=== PATIENT | male | born 1965 | race Caucasian/White ===

== ENCOUNTER 2016-06-02 20:29 | Emergency (ER) | payer MEDICAID ==
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
[2016-06-03] MEDS ORDERED: HYDROCODONE/ACETAMINOPHEN 5-325 MG 6 TAB/DSPK PO PRN (03:40)
[2016-06-03] MEDS ORDERED: HYDROCODONE/ACETAMINOPHEN 5-325 MG TABLET PO ONE (03:40)
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
[2016-06-03 03:48] VITALS: BP 138/87
== END 2016-06-03 03:49 | disposition home or self-care (01) ==
LOC: ER 20:29
DX: S16.1XXA Strain of muscle, fascia and tendon at neck level, initial encounter (principal); Y04.8XXA Assault by other bodily force, initial encounter; M54.2 Cervicalgia; M25.531 Pain in right wrist; I10 Essential (primary) hypertension; E11.9 Type 2 diabetes mellitus without complications; J44.9 Chronic obstructive pulmonary disease, unspecified; J45.909 Unspecified asthma, uncomplicated; F17.200 Nicotine dependence, unspecified, uncomplicated; Z88.6 Allergy status to analgesic agent; Z88.8 Allergy status to other drugs, medicaments and biological substances
CPT/HCPCS: 72050; 72125; 99284

== ENCOUNTER 2017-09-06 00:10 | Emergency (ER) | payer MEDICAID ==
[2017-09-06] MEDS ORDERED: DIPH/PERTUSS(ACELL)/TETANUS VAC/PF 0.5 ML SYR (>=10YO) IM ONE ×2 (00:31→05:11)
[2017-09-06] MEDS ORDERED: ONDANSETRON HCL INJ/PF 4 MG/2 ML SDV IV ONE (00:32)
[2017-09-06] MEDS ORDERED: NORMAL SALINE 1000 ML 1,000 ML IV ONE (00:32)
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
--- NOTE | 2017-09-06 01:22 | RADIOLOGY REPORT (SQ) ---
EXAM DESCRIPTION: CT of the cervical spine without contrast. CLINICAL HISTORY: fall, pain COMPARISON: None available TECHNIQUE: Axial CT of the cervical spine obtained without contrast. FINDINGS: Alignment of the cervical spine is maintained without evidence of subluxation. The atlantoaxial, atlantodental, and occipitoatlantal intervals are preserved. No fracture identified. Vertebral body height preserved. Prevertebral soft tissues are unremarkable. Degenerative spurring of the atlantodental articulation. Mild endplate spondylosis, uncovertebral spurring, and facet arthropathy without significant central canal nor neural foraminal narrowing. Intervertebral disc height relatively well-preserved throughout the cervical spine. Visualized skull base is intact. No fracture of the visualized facial bones. Visualized mastoid air cells and paranasal sinuses are well aerated. Visualized thyroid is unremarkable. No cervical lymphadenopathy. No pneumothorax in the visualized lung apices. DLP: 284.26 mGy-cm IMPRESSION: 1. No acute fracture or subluxation of the cervical spine. This exam was performed according to our departmental dose-optimization program, which includes automated exposure control, adjustment of the mA and/or kV according to patient size and/or use of iterative reconstruction technique.
[2017-09-06 01:42] LABS: ANION GAP 19 (5-19); BLOOD UREA NITROGEN 29 mg/dL (7-20); CALCIUM 9.1 mg/dL (8.4-10.2); CARBON DIOXIDE 21 mmol/L (22-30); CHLORIDE 92 mmol/L (98-107); GLUCOSE 190 mg/dL (75-110); POTASSIUM 3.5 mmol/L (3.6-5.0); SODIUM 131.5 mmol/L (137-145)
--- NOTE | 2017-09-06 01:49 | RADIOLOGY REPORT (SQ) ---
EXAM DESCRIPTION: 2 views of the left elbow CLINICAL HISTORY: fall, pain COMPARISON: None. FINDINGS: IV in the antecubital fossa. No joint effusion. No acute fracture or dislocation. Normal osseous mineralization. IMPRESSION: No acute fracture or dislocation.
--- NOTE | 2017-09-06 01:50 | RADIOLOGY REPORT (SQ) ---
EXAM DESCRIPTION: Lumbar spine radiographs CLINICAL HISTORY: fall, pain COMPARISON: None. FINDINGS: 5 views of the lumbar spine. 5 nonrib-bearing lumbar vertebrae. Pedicles identified throughout. Lumbar vertebral body height preserved. No cortical step-offs or subluxation. Mild endplate spondylosis. Mild loss of intervertebral disc height at L2/3. No abnormalities of visualized sacrum. Atherosclerotic vascular calcification. IMPRESSION: No acute abnormalities of the lumbar spine by plain film criteria.
--- NOTE | 2017-09-06 01:53 | RADIOLOGY REPORT (SQ) ---
EXAM DESCRIPTION: 2 views of the left shoulder CLINICAL HISTORY: fall, pain COMPARISON: None. FINDINGS: 2 views of the left shoulder. No acute fracture or dislocation. Normal osseous mineralization. Degenerative change of the acromioclavicular joint. Visualized portions of the left hemithorax demonstrate no acute abnormalities. IMPRESSION: No acute fracture or dislocation.
[2017-09-06] MEDS ORDERED: NORMAL SALINE 1000 ML 500 ML IV ONE (02:01)
[2017-09-06] MEDS ORDERED: POTASSIUM CHLORIDE 10 MEQ TABLET.SA PO ONE (02:01)
[2017-09-06] MEDS ORDERED: FAMOTIDINE 20 MG TABLET PO ONE ×2 (02:01→05:11)
[2017-09-06 04:13] LABS: ANION GAP 15 (5-19); BLOOD UREA NITROGEN 27 mg/dL (7-20); CARBON DIOXIDE 24 mmol/L (22-30); CHLORIDE 93 mmol/L (98-107); GLUCOSE 184 mg/dL (75-110); POTASSIUM 3.6 mmol/L (3.6-5.0); SODIUM 132.2 mmol/L (137-145)
[2017-09-06 06:08] VITALS: BP 128/64
== END 2017-09-06 06:15 | disposition home or self-care (01) ==
LOC: ER 00:10
DX: F10.929 Alcohol use, unspecified with intoxication, unspecified (principal); F17.200 Nicotine dependence, unspecified, uncomplicated; M25.512 Pain in left shoulder; R51 Headache; M79.602 Pain in left arm; E11.9 Type 2 diabetes mellitus without complications; I10 Essential (primary) hypertension; Z23 Encounter for immunization
CPT/HCPCS: 99285; 96361; 90471; 96374; 36415; 83735; 80048; 73070; 72110; 73030; 70450; 72125; 90715; J3490; J2405; J7030

== ENCOUNTER 2018-04-07 22:41 | Emergency (ER) | payer MEDICAID, OTHER ==
[2018-04-07] MEDS ORDERED: ONDANSETRON HCL INJ/PF 4 MG/2 ML SDV IV ONE (23:00)
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
[2018-04-07 23:31] LABS: ABSOLUTE EOSINOPHILS # (AUTO) 0.2 10^3/uL (0.0-0.6); ABSOLUTE MONOCYTES (AUTO) 0.5 10^3/uL (0.1-1.4); ABSOLUTE NEUT (AUTO) 5.3 10^3/uL (1.7-8.2); BASOPHILS % (AUTO) 0.4 % (0-2); HEMATOCRIT 40.6 % (37.9-51.0); HEMOGLOBIN 14.1 g/dL (13.5-17.0); MEAN CORPUSCULAR HEMOGLOBIN 32.2 pg (27.0-33.4); MEAN CORPUSCULAR HGB CONC 34.7 g/dL (32.0-36.0); MEAN CORPUSCULAR VOLUME 93 fl (80-97); MONOCYTES % (AUTO) 6.1 % (3-13); PLATELET COUNT 203 10^3/uL (150-450); RED BLOOD COUNT 4.38 10^6/uL (4.35-5.55); RED CELL DISTRIBUTION WIDTH 14.1 % (11.5-14.0); SEGMENTED NEUTROPHILS % (AUTO) 65.5 % (42-78); TOTAL CELLS COUNTED % (AUTO) 100 %
--- NOTE | 2018-04-07 23:37 | RADIOLOGY REPORT (SQ) ---
EXAM DESCRIPTION: XR TIBIA FIBULA 2 VIEWS COMPLETED DATE/TME: 04/07/2018 23:01 CLINICAL HISTORY: 52 years, Male, fall, pain COMPARISON: None. NUMBER OF VIEWS: 4 TECHNIQUE: 4 view right tibia fibula LIMITATIONS: None. FINDINGS: Negative for acute fracture or dislocation. Soft tissues are unremarkable. Joint spaces are preserved IMPRESSION: Negative exam copyright 2010 [employer]- All Rights Reserved
[2018-04-07 23:40] LABS: ANION GAP 10 (5-19); BLOOD UREA NITROGEN 12 mg/dL (7-20); CALCIUM 9.2 mg/dL (8.4-10.2); CARBON DIOXIDE 26 mmol/L (22-30); CHLORIDE 106 mmol/L (98-107); GLUCOSE 121 mg/dL (75-110); POTASSIUM 4.1 mmol/L (3.6-5.0); SODIUM 141.8 mmol/L (137-145)
--- NOTE | 2018-04-07 23:59 | RADIOLOGY REPORT (SQ) ---
EXAM DESCRIPTION: CT HEAD WITHOUT IV CONTRAST COMPLETED DATE/TME: 04/07/2018 22:59 CLINICAL HISTORY: fall, head injury, ETOH COMPARISON: None available TECHNIQUE: Axial CT of the head obtained from the skull apex to the skull base without contrast. FINDINGS: No acute intracranial hemorrhage identified. No mass, mass effect, shift of the midline, abnormal extra-axial fluid collection or CT evidence of acute ischemic change identified. The ventricular system is unremarkable. No acute abnormalities of the supratentorial white matter, basal ganglia, cerebellum, or brainstem. The visualized paranasal sinuses and the mastoids are clear. Nondisplaced nasal bone fracture. No skull fracture identified. Visualized orbits and globes are unremarkable. DLP:930.56 mGy-cm IMPRESSION: 1. No acute intracranial abnormality identified. 2. Nondisplaced nasal bone fracture. This exam was performed according to our departmental dose-optimization program, which includes automated exposure control, adjustment of the mA and/or kV according to patient size and/or use of iterative reconstruction technique.
--- NOTE | 2018-04-07 23:59 | RADIOLOGY REPORT (SQ) ---
EXAM DESCRIPTION: CT CERVICAL SPINE WITHOUT IV CONTRAST COMPLETED DATE/TME: 04/07/2018 22:59 CLINICAL HISTORY: 52 years, Male, fall, pain COMPARISON: Prior CT 06/03/2016 TECHNIQUE: 257 Images stored on PACS. All CT scanners at this facility use dose modulation, iterative reconstruction, and/or weight based dosing when appropriate to reduce radiation dose to as low as reasonably achievable (ALARA). [facility]: Dose Right [facility]: CareDose [facility]: Dose Right [facility]: Teradose 4D [facility]: [employer] LIMITATIONS: None. FINDINGS: Evaluation of spinal canal contents limited due to CT technique. However, vertebral body height and alignment is preserved. Chronic changes to the atlantoaxial space. The disc spaces are otherwise maintained. Prevertebral soft tissues are normal. Limited evaluation of the lung apices is unremarkable. IMPRESSION: No acute C-spine abnormality TECHNICAL DOCUMENTATION: Quality ID # 436: Final reports with documentation of one or more dose reduction techniques (e.g., Automated exposure control, adjustment of the mA and/or kV according to patient size, use of iterative reconstruction technique) copyright 2011 [employer]- All Rights Reserved
--- NOTE | 2018-04-08 00:08 | RADIOLOGY REPORT (SQ) ---
EXAM DESCRIPTION: CT CHEST, abdomen and pelvis WITH IV CONTRAST COMPLETED DATE/TME: 04/07/2018 22:59 CLINICAL HISTORY: 52 years, Male, fall, pain COMPARISON: None. TECHNIQUE: 518 Images stored on PACS. All CT scanners at this facility use dose modulation, iterative reconstruction, and/or weight based dosing when appropriate to reduce radiation dose to as low as reasonably achievable (ALARA). [facility]: Dose Right [facility]: CareDose [facility]: Dose Right [facility]: Teradose 4D [facility]: [employer] LIMITATIONS: None. FINDINGS: CT chest: Revised thyroid gland enhances normally. The mediastinal vasculature enhances normally. Nonenlarged mediastinal and hilar lymph nodes. The heart and pericardium are unremarkable. Osseous structures of the thorax are grossly intact. No pneumothorax. The visualized airways are patent. The lungs are clear. CT abdomen/pelvis: Osseous structures of the abdomen/pelvis are grossly intact. Fatty infiltrative change to the liver. Nodular contour to the liver consistent with early cirrhotic change. The spleen, adrenal glands, pancreas, kidneys are unremarkable. The gallbladder is present. No gross evidence for bowel obstruction. No free air or free fluid. Urinary bladder is mildly distended. Mild atheromatous change. Not stated previously, there is a simple appearing right renal cyst. IMPRESSION: Negative for acute intrathoracic process. Negative for acute intra-abdominal/pelvic process. Nodular, cirrhotic changes to the liver with underlying fatty infiltrative change. TECHNICAL DOCUMENTATION: Quality ID # 436: Final reports with documentation of one or more dose reduction techniques (e.g., Automated exposure control, adjustment of the mA and/or kV according to patient size, use of iterative reconstruction technique) copyright 2011 [employer]- All Rights Reserved
[2018-04-08 00:28] LABS: APPEARANCE,URINE CLEAR; BILIRUBIN,URINE NEGATIVE (NEGATIVE); COLOR,URINE COLORLESS; GLUCOSE, URINE NEGATIVE (NEGATIVE); KETONES,URINE NEGATIVE (NEGATIVE); LEUKOCYTE ESTERASE,URINE NEGATIVE (NEGATIVE); NITRITE,URINE NEGATIVE (NEGATIVE); PROTEIN,URINE NEGATIVE (NEGATIVE); URINE SPECIFIC GRAVITY 1.003; UROBILINOGEN,URINE NEGATIVE mg/dL (<2.0)
[2018-04-08 02:05] VITALS: BP 111/68
== END 2018-04-08 01:20 | disposition home or self-care (01) ==
LOC: ER 22:41
DX: S02.2XXA Fracture of nasal bones, initial encounter for closed fracture (principal); S09.90XA Unspecified injury of head, initial encounter; M79.604 Pain in right leg; M54.2 Cervicalgia; W01.0XXA Fall on same level from slipping, tripping and stumbling without subsequent striking against object, initial encounter; Y92.008 Other place in unspecified non-institutional (private) residence as the place of occurrence of the external cause; I10 Essential (primary) hypertension; E11.9 Type 2 diabetes mellitus without complications; F10.929 Alcohol use, unspecified with intoxication, unspecified
CPT/HCPCS: 99284; 96374; 36415; 85025; 80048; 81001; 73590; 70450; 71260; 72125; 74177; J2405

== ENCOUNTER 2020-04-13 13:24 | Inpatient (IN) | payer MEDICAID ==
[2020-04-13] MEDS ORDERED: MORPHINE SULFATE 10 MG/ML INJ IV ONE ×2 (14:13→16:59)
[2020-04-13] MEDS ORDERED: ONDANSETRON HCL INJ/PF 4 MG/2 ML SDV IV ONE (14:13)
[2020-04-13] MEDS ORDERED: NORMAL SALINE 1000 ML 1,000 ML IV ONE (14:15)
--- NOTE | 2020-04-13 14:16 | ER Document Report ---
ED Medical Screen (RME) - General Stated Complaint: NECK PAIN/SHORTNESS OF BREATH/NAUSEA/VOMITING Time Seen by Provider: 04/13/20 14:08 Primary Care Provider: ELY RODRIGUEZ PA-C [Primary Care Provider] - Follow up as needed Notes: Patient presents complaining of neck pain and low back pain for the past 3 days. Patient states pain radiates to bilateral upper extremities. Patient states that his legs go out and he has fallen twice over the past few days. Patient reports nausea and vomiting x5 episodes today. Patient denies any fever. Patient reports a history of asthma, hypertension and diabetes. Patient came by EMS and removed his cervical collar that had been placed. Patient refuses cervical collar. I have greeted and performed a rapid initial assessment of this patient. A comprehensive ED assessment and evaluation of the patient, analysis of test results and completion of the medical decision making process will be conducted by additional ED providers. TRAVEL OUTSIDE OF THE [place] IN LAST 30 DAYS: No - Related Data Allergies/Adverse Reactions: gabapentin [Gabapentin] Allergy (Severe, Verified 04/13/20 14:09) n and v prednisone Allergy (Verified 04/13/20 14:09) Past Medical History - Past Medical History Cardiac Medical History: Reports: Hx Hypertension - on meds Denies: Hx Coronary Artery Disease, Hx Heart Attack Pulmonary Medical History: Reports: Hx Asthma - nebulizer, Hx Bronchitis - hx of, Hx COPD - inhalers Denies: Hx Pneumonia Neurological Medical History: Denies: Hx Cerebrovascular Accident, Hx Seizures Endocrine Medical History: Reports: Hx Diabetes Mellitus Type 2 Renal/ Medical History: Denies: Hx Peritoneal Dialysis Musculoskeltal Medical History: Reports Hx Arthritis - mild, Reports Hx Musculoskeletal Deformity Past Surgical History: Reports: Hx Appendectomy, Hx Orthopedic Surgery - Kolb's cyst removal, carpal, and another nerve release to right arm - Immunizations Hx Diphtheria, Pertussis, Tetanus Vaccination: No Physical Exam - Vital signs Vitals: Temp Pulse Resp BP Pulse Ox 97.9 F 84 20 91/60 L 95 04/13/20 14:03 04/13/20 14:03 04/13/20 14:03 04/13/20 14:03 04/13/20 14:03 - General General appearance: Alert Notes: Cervical paraspinal tenderness, patient holding head flexed for comfort, lower lumbar midline tenderness Course - Vital Signs Vital signs: Temp Pulse Resp BP Pulse Ox 97.9 F 84 20 91/60 L 95 04/13/20 14:03 04/13/20 14:03 04/13/20 14:03 04/13/20 14:03 04/13/20 14:03 Doctor's Discharge - Discharge Referrals: ELY RODRIGUEZ, REECEC [Primary Care Provider] - Follow up as needed
--- NOTE | 2020-04-13 14:50 | RADIOLOGY REPORT (SQ) ---
EXAM DESCRIPTION: L SPINE WHOLE IMAGES COMPLETED DATE/TIME: 04/13/2020 2:35 pm REASON FOR STUDY: back pain, hx fall COMPARISON: 09/06/2017 NUMBER OF VIEWS: Five views including obliques. TECHNIQUE: AP, lateral, oblique, and sacral radiographic images acquired of the lumbar spine. LIMITATIONS: None. FINDINGS: MINERALIZATION: Normal. SEGMENTATION: Normal. No transitional anatomy. ALIGNMENT: Normal. VERTEBRAE: Maintained height. No fracture or worrisome bone lesion. DISCS: Multilevel disc space narrowing with osteophytes. POSTERIOR ELEMENTS: Pedicles and facets are intact. No pars defect or posterior arch defects. Facet arthropathy is present. HARDWARE: None in the spine. PARASPINAL SOFT TISSUES: Atherosclerotic calcifications. PELVIS: Intact as visualized. No fractures or worrisome bone lesions. SI joints intact. OTHER: No other significant finding. IMPRESSION: SPONDYLOSIS WITHOUT BONE LESION OR FRACTURE. Similar appearance to 2018. TECHNICAL DOCUMENTATION: JOB ID: [id number] [place]-72 2010 [employer]- All Rights Reserved Reading location - IP/workstation name: [email or web address]
[2020-04-13 15:12] LABS: ABSOLUTE EOSINOPHILS # (AUTO) 0.1 10^3/uL (0.0-0.6); ABSOLUTE MONOCYTES (AUTO) 0.8 10^3/uL (0.1-1.4); ABSOLUTE NEUT (AUTO) 8.2 10^3/uL (1.7-8.2); BASOPHILS % (AUTO) 0.1 % (0-2); EOSINOPHILS % (AUTO) 1.4 % (0-6); HEMATOCRIT 35.4 % (37.9-51.0); HEMOGLOBIN 11.7 g/dL (13.5-17.0); LYMPHOCYTES % (AUTO) 9.5 % (13-45); MEAN CORPUSCULAR HGB CONC 33.2 g/dL (32.0-36.0); MEAN CORPUSCULAR VOLUME 96 fl (80-97); MONOCYTES % (AUTO) 7.8 % (3-13); PLATELET COUNT 181 10^3/uL (150-450); RED BLOOD COUNT 3.67 10^6/uL (4.35-5.55); RED CELL DISTRIBUTION WIDTH 14.6 % (11.5-14.0); SEGMENTED NEUTROPHILS % (AUTO) 81.2 % (42-78); TOTAL CELLS COUNTED % (AUTO) 100 %; WHITE BLOOD COUNT 10.1 10^3/uL (4.0-10.5)
--- NOTE | 2020-04-13 15:20 | RADIOLOGY REPORT (SQ) ---
EXAM DESCRIPTION: CT CERVICAL SPINE WITHOUT IMAGES COMPLETED DATE/TIME: 04/13/2020 11:47 am REASON FOR STUDY: neck pain, hx fall COMPARISON: 04/03/2020 TECHNIQUE: Axial images acquired through the cervical spine without intravenous contrast. Images re viewed with lung, soft tissue and bone windows. Reconstructed coronal and sagittal MPR images review ed. Images stored on PACS. All CT scanners at this facility use dose modulation, iterative reconstruction, and/or weight based d osing when appropriate to reduce radiation dose to as low as reasonably achievable (ALARA). [facility]: Dose Right [facility]: CareDose [facility]: Dose Right [facility]: Teradose 4D [facility]: [employer] RADIATION DOSE: CT Rad equipment meets quality standard of care and radiation dose reduction techniq ues were employed. CTDIvol: 24.4 mGy. DLP: 722 mGy-cm. mGy. LIMITATIONS: None. FINDINGS: ALIGNMENT: Straightening of the normal cervical lordosis is similar to prior examination. No spondylolisthesis. MINERALIZATION: Normal. VERTEBRAL BODIES: No fractures or dislocation. DISCS: Disc height is relatively well preserved. FACETS, LATERAL MASSES, POSTERIOR ELEMENTS: No fractures. No dislocation. No acute findings. Facet arthropathy on the right at C2-3. HARDWARE: None in the spine. VISUALIZED RIBS: No fractures. LUNG APICES AND SOFT TISSUES: Minimal apical scarring and probable minimal centrilobular emphysema. OTHER: No other significant finding. IMPRESSION: 1. No CT evidence of acute fracture or subluxation of the cervical spine. TECHNICAL DOCUMENTATION: JOB ID: [id number] Quality ID # 436: Final reports with documentation of one or more dose reduction techniques (e.g., Au tomated exposure control, adjustment of the mA and/or kV according to patient size, use of iterative reconstruction technique) 2010 [employer]- All Rights Reserved Reading location - IP/workstation name: [email or web address]
[2020-04-13 15:25] LABS: ALBUMIN 4.6 g/dL (3.5-5.0); ALKALINE PHOSPHATASE 45 U/L (38-126); ANION GAP 14 (5-19); ASPARTATE AMINO TRANSFERASE 43 U/L (17-59); BILIRUBIN,DIRECT 0.3 mg/dL (0.0-0.4); BILIRUBIN,TOTAL 0.8 mg/dL (0.2-1.3); BLOOD UREA NITROGEN 52 mg/dL (7-20); CALCIUM 8.8 mg/dL (8.4-10.2); CARBON DIOXIDE 24 mmol/L (22-30); CHLORIDE 101 mmol/L (98-107); CREATINE KINASE 1325 U/L (55-170); GLUCOSE 211 mg/dL (75-110); POTASSIUM 4.8 mmol/L (3.6-5.0)
[2020-04-13] MEDS ORDERED: ONDANSETRON HCL INJ/PF 4 MG/2 ML SDV ONE (17:05)
[2020-04-13 17:50] LABS: APPEARANCE,URINE SLIGHTLY-CLOUDY; BILIRUBIN,URINE NEGATIVE (NEGATIVE); COLOR,URINE YELLOW; GLUCOSE, URINE NEGATIVE (NEGATIVE); KETONES,URINE NEGATIVE (NEGATIVE); LEUKOCYTE ESTERASE,URINE NEGATIVE (NEGATIVE); NITRITE,URINE NEGATIVE (NEGATIVE); PROTEIN,URINE 30 mg/dL (NEGATIVE); URINE SPECIFIC GRAVITY 1.021; UROBILINOGEN,URINE NEGATIVE mg/dL (<2.0)
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
[2020-04-13] MEDS ORDERED: ACETAMINOPHEN 325 MG TABLET PO PRN (20:43)
[2020-04-13] MEDS ORDERED: NORMAL SALINE 1000 ML 1,000 ML IV PRN (20:43)
[2020-04-13] MEDS ORDERED: ONDANSETRON HCL INJ/PF 4 MG/2 ML SDV IV PRN (20:43)
[2020-04-13] MEDS ORDERED: IPRATROPIUM/ALBUTEROL 0.5-2.5 MG/3 ML AMPUL NEB ONE (20:43)
[2020-04-13] MEDS ORDERED: DEXTROSE 40% GEL 15 GM TUBE PO PRN ×2 (20:56)
[2020-04-13] MEDS ORDERED: GLUCAGON,HUMAN RECOMB 1 MG INJ IM PRN (20:56)
[2020-04-13] MEDS ORDERED: DEXTROSE 50%-WATER 25 GM/50 ML DISP.SYRIN IV PRN ×2 (20:56)
--- NOTE | 2020-04-13 21:31 | PDOC H&P ---
History of Present Illness Admission Date/PCP: ELY RODRIGUEZ PA-C Patient complains of: Neck and back pain, generalized weakness History of Present Illness: TORY GARCIA is a 55 year old male with a history of type 2 diabetes, hypertension, COPD and chronic back pain who presents to the ED reporting worsening of neck and back pain. On further questioning patient reports that he has body aches all over with associated generalized weakness. He reports that he he fell down 3 times in the past few days due to generalized weakness and pain but he denies any dizziness, lightheadedness, passing out/losing consciousness or hitting his head. He states that he had multiple episodes of nonbloody and nonbilious vomiting of ingested matter 3 days back which subsided spontaneously but he states that he still feels nauseous. He states that he has been taking oxycodone and Tylenol for his back and neck pain but denies taking any other nonsteroidal anti-inflammatory drugs. He reported that he has chronic cough from COPD but has not noticed any significant change in the intensity of his cough or shortness of breath. He denies fever, chills, diarrhea, abdominal pain, dysuria, frequency or urgency. On routine labs his BUN and/creatinine was found to be markedly elevated at 52/5.5 from a creatinine of 1.47 10 days back. Past Medical History Cardiac Medical History: Reports: Hypertension - on meds Denies: Coronary Artery Disease, Myocardial Infarction Pulmonary Medical History: Reports: Asthma - nebulizer, Bronchitis - hx of, Chronic Obstructive Pulmonary Disease (COPD) - inhalers Denies: Pneumonia Neurological Medical History: Denies: Seizures Endocrine Medical History: Reports: Diabetes Mellitus Type 2 Musculoskeltal Medical History: Reports: Arthritis - mild Hematology: Denies: Anemia Past Surgical History Past Surgical History: Reports: Appendectomy, Orthopedic Surgery - Kolb's cyst removal, carpal, and another nerve release to right arm Social History Information Source: Patient Smoking Status: Current Every Day Smoker Electronic Cigarette use?: No Hx Recreational Drug Use: No Drugs: None - Advance Directive Resuscitation Status: Full Code Family History Family History: None, Reviewed & Not Pertinent Parental Family History Reviewed: Yes Children Family History Reviewed: Yes Sibling(s) Family History Reviewed.: Yes Medication/Allergy Home Medications: Albuterol Sulfate [Albuterol Sulfate Hfa] 2 puff IH Q4H PRN 04/15/13 Albuterol Sulfate [Proair HFA Inhalation Aerosol 8.5 gm MDI] 1 puff IH Q4 PRN 06/06/15 Hydrochlorothiazide 25 mg PO DAILY 06/06/15 Lisinopril [Prinivil] 20 mg PO DAILY 06/06/15 Metformin HCl 500 mg PO BID 06/06/15 Promethazine HCl [Phenergan 25 mg Supp.rect] 25 mg ID Q4HP PRN 06/06/15 Tiotropium [place] [Spiriva Handihaler 18 mcg/dose (30 Dose)] 1 cap IH DAILY 06/06/15 Hydromorphone HCl [Dilaudid 2 mg Tablet] 2 mg PO Q4HP PRN #40 tablet 06/13/15 Aspirin [Ecotrin] 81 mg PO DAILY 08/01/15 Oxycodone HCl/Acetaminophen [Percocet 5-325 mg Tablet] 1 - 2 tab PO ASDIR PRN #50 tablet 08/05/15 Oxycodone HCl/Acetaminophen [Percocet 5-325 mg Tablet] 1 tab PO Q6HP PRN #10 tablet 08/10/15 Hydrocodone Bit/Acetaminophen [Hydrocodon-Acetaminophen 5-325] 1 each PO Q4HP PRN #20 tablet 10/26/15 Prednisone [Deltasone 10 mg Tablet] 10 mg PO ASDIR PRN #21 tablet 10/26/15 Promethazine HCl [Phenergan 25 mg Tablet] 25 mg PO Q4HP PRN #30 tablet 10/26/15 Hydrocodone/Acetaminophen [[place] 5-325 mg Tablet] 1 tab PO Q4 PRN #8 tablet 06/03/16 Famotidine [Pepcid 20 mg Tablet] 20 mg PO BID #20 tablet 09/06/17 Ondansetron [Zofran Odt 4 mg Tablet] 1 - 2 tab PO Q4H PRN #15 tab.rapdis 09/06/17 Cephalexin Monohydrate [Keflex 500 mg Capsule] 500 mg PO BID 5 Days #14 capsule 04/04/20 Propranolol HCl [Inderal 20 mg Tablet] 20 mg PO HSP PRN #20 tab 04/04/20 Allergies/Adverse Reactions: gabapentin [Gabapentin] Allergy (Severe, Verified 04/13/20 14:09) n and v prednisone Allergy (Verified 04/13/20 14:09) Review of Systems Constitutional: ABSENT: chills, fever(s), headache(s), weight gain, weight loss Eyes: ABSENT: visual disturbances Ears: ABSENT: hearing changes Nose, Mouth, and Throat: ABSENT: headache(s), mouth pain, sore throat Cardiovascular: ABSENT: chest pain, dyspnea on exertion, orthropnea, palpitations Respiratory: PRESENT: as per HPI. ABSENT: hemoptysis Gastrointestinal: PRESENT: as per HPI Genitourinary: ABSENT: dysuria, hematuria Musculoskeletal: ABSENT: joint swelling Integumentary: ABSENT: rash, wounds Neurological: ABSENT: abnormal gait, abnormal speech, confusion, dizziness, focal weakness, syncope Psychiatric: ABSENT: anxiety, depression, homidical ideation, suicidal ideation Endocrine: ABSENT: cold intolerance, heat intolerance, polydipsia, polyuria Hematologic/Lymphatic: ABSENT: easy bleeding, easy bruising Physical Exam Vital Signs: Temp Pulse Resp BP Pulse Ox 97.9 F 84 20 117/58 L 95 04/13/20 14:08 04/13/20 14:03 04/13/20 14:03 04/13/20 14:17 04/13/20 14:03 Intake & Output 04/12/20 04/13/20 04/14/20 06:59 06:59 06:59 Intake Total 1000 Balance 1000 Weight 81.647 kg Additional comments: GENERAL APPEARANCE: Alert and oriented x3, in no acute distress HEENT: Normocephalic and atraumatic. No scleral icterus. Dry oral mucosa NECK: Supple. No lymphadenopathy or tenderness. No carotid bruit. No JVD CHEST: Symmetric. Nontender to palpation. LUNGS: Clear with good air entry bilaterally. Has diffuse wheezing bilaterally HEART: Regular rate and rhythm with normal S1 and S2. No murmurs, gallops, or rubs. ABDOMEN:active bowel sounds, no direct or rebound tenderness. No organomegaly detected. No CVA tenderness EXTREMITIES: No cyanosis, clubbing, or edema. MUSCULOSKELETAL: No deformity, atrophy or swelling noted PSYCHIATRIC: Recent and remote memory is intact. Appropriate mood and affect. SKIN: Warm, dry, and well perfused. No lesions or rashes are noted. NEUROLOGIC: No focal sensory or motor deficits are noted. Results Laboratory Results: 04/13/20 14:48 04/13/20 14:48 04/13/20 04/13/20 04/13/20 14:48 14:48 17:00 WBC 10.1 RBC 3.67 L Hgb 11.7 L Hct 35.4 L MCV 96 MCH 32.0 MCHC 33.2 RDW 14.6 H Plt Count 181 Seg Neutrophils % 81.2 H Sodium 139.1 Potassium 4.8 Chloride 101 Carbon Dioxide 24 Anion Gap 14 BUN 52 H Creatinine 5.50 H Est GFR ( Amer) 13 L Glucose 211 H Calcium 8.8 Total Bilirubin 0.8 AST 43 Alkaline Phosphatase 45 Total Protein 8.0 Albumin 4.6 Urine Color YELLOW Urine Appearance SLIGHTLY-CLOUDY Urine pH 5.0 Ur Specific [place] 1.021 Urine Protein 30 H Urine Glucose (UA) NEGATIVE Urine Ketones NEGATIVE Urine Blood MODERATE H Urine Nitrite NEGATIVE Ur Leukocyte Esterase NEGATIVE Urine WBC (Auto) 1 Urine RBC (Auto) 1 04/13/20 14:48 Creatine Kinase 1325 H Impressions: Cervical Spine CT 04/13/20 14:13 IMPRESSION: 1. No CT evidence of acute fracture or subluxation of the cervical spine. Lumbar Spine X-Ray 04/13/20 14:13 IMPRESSION: SPONDYLOSIS WITHOUT BONE LESION OR FRACTURE. Similar appearance to 2018. Assessment and Plan - Diagnosis (1) Acute kidney injury Is this a current diagnosis for this admission?: Yes Plan: Patient presents with generalized body aches and weakness BUN/creatinine is elevated at 52/5.5 from a baseline creatinine of 1.47 on 04/03 Likely cause could be prerenal from GI loss, crystal induced from rhabdo versus pain medication Ordered obtain urine sodium and creatinine CK level is elevated at 1325 Patient received 1 L IV fluid at the ED Provide additional bolus and then continue normal saline at 150 mL/h Closely monitor kidney function and electrolytes, urine output Avoid nephrotoxic's and renally dose medications Nephrology consult in the morning (2) Rhabdomyolysis Is this a current diagnosis for this admission?: Yes Plan: Presents with generalized aches Patient has been having falls due to weakness CK level is elevated at 1325 Continue aggressive IV hydration as stated above Monitor CK level (3) Type 2 diabetes mellitus Is this a current diagnosis for this admission?: Yes Plan: The blood sugar on this presentation was 211 Patient takes Metformin at home Will place him on sliding scale insulin Accu-Chek and hypoglycemia protocol A1c in the a.m. (4) COPD (chronic obstructive pulmonary disease) Is this a current diagnosis for this admission?: Yes (5) Hypertension Is this a current diagnosis for this admission?: Yes Plan: Blood pressure with within acceptable range Will hold antihypertensive medications for now due to DENISE and volume depletion (6) Chronic neck and back pain Is this a current diagnosis for this admission?: Yes Plan: Patient presents with worsening of neck pain Lumbar spine x-ray showed spondylosis without an acute change Cervical CT was also done which showed no evidence of acute fracture or subluxation Placed him on Dilaudid 0.5 mg every 4 hourly as needed for pain Consider physical therapy on discharge - Time Time Spent with patient: 35 or more minutes Total Critical Time (Minutes): 45 Smoking Cessation Education: 3 to 10 minutes Medications reviewed and adjusted accordingly: Yes Anticipated Discharge Disposition: Home, Self Care Anticipated Discharge Timeframe: within 72 hours - Inpatient Certification Based on my medical assessment, after consideration of the patient's comorbidities, presenting symptoms, or acuity I expect that the services needed warrant INPATIENT care.: Yes I certify that my determination is in accordance with my understanding of Medicare's requirements for reasonable and necessary INPATIENT services [42 CFR 412.3e].: Yes Medical Necessity: Need Close Monitoring Due to Risk of Patient Decompensation, Need For IV Fluids, Risk of Complication if Not Cared For in Hospital Post Hospital Care: D/C or Transfer Summary
[2020-04-13] MEDS: HEPARIN SOD (PORCINE) 5,000 UNIT/ML 1 ML VIAL SUBCUT SCH (22:26)
[2020-04-13] MEDS: FAMOTIDINE 20 MG TABLET PO SCH (22:27)
[2020-04-13] MEDS: HYDROMORPHONE HCL INJ/PF 2 MG/ML AMPULE IV PRN (22:40)
[2020-04-14] MEDS ORDERED: CALCIUM CARBONATE 500 MG TAB.CHEW PO ONE (00:30)
[2020-04-14] MEDS: NORMAL SALINE 1000 ML 1,000 ML IV PRN ×4 (00:45→22:43)
[2020-04-14] MEDS: INSULIN REG, HUMAN 100 UNIT/ML 3 ML VIAL (PYX) SUBCUT SCH ×5 (01:03→21:11)
[2020-04-14 02:20] LABS: URINE CREATININE 284.2 mg/dL (22-328)
[2020-04-14] MEDS ORDERED: OXYCODONE-ACETAMINOPHEN 5-325 MG TABLET PO SCH (04:15)
[2020-04-14] MEDS: OXYCODONE-ACETAMINOPHEN 5-325 MG TABLET PO PRN ×3 (04:29→18:53)
[2020-04-14 05:19] LABS: ABSOLUTE EOSINOPHILS # (AUTO) 0.2 10^3/uL (0.0-0.6); ABSOLUTE LYMPHOCYTES (AUTO) 1.1 10^3/uL (0.5-4.7); ABSOLUTE MONOCYTES (AUTO) 0.7 10^3/uL (0.1-1.4); ABSOLUTE NEUT (AUTO) 4.3 10^3/uL (1.7-8.2); BASOPHILS % (AUTO) 0.3 % (0-2); EOSINOPHILS % (AUTO) 3.3 % (0-6); HEMATOCRIT 30.7 % (37.9-51.0); HEMOGLOBIN 10.3 g/dL (13.5-17.0); LYMPHOCYTES % (AUTO) 16.7 % (13-45); MEAN CORPUSCULAR HEMOGLOBIN 32.2 pg (27.0-33.4); MEAN CORPUSCULAR HGB CONC 33.5 g/dL (32.0-36.0); MEAN CORPUSCULAR VOLUME 96 fl (80-97); MONOCYTES % (AUTO) 11.8 % (3-13); PLATELET COUNT 140 10^3/uL (150-450); RED CELL DISTRIBUTION WIDTH 14.1 % (11.5-14.0); SEGMENTED NEUTROPHILS % (AUTO) 67.9 % (42-78); TOTAL CELLS COUNTED % (AUTO) 100 %; WHITE BLOOD COUNT 6.3 10^3/uL (4.0-10.5)
[2020-04-14] MEDS: IPRATROPIUM/ALBUTEROL 0.5-2.5 MG/3 ML AMPUL NEB PRN ×2 (05:24→18:51)
[2020-04-14 05:33] LABS: ANION GAP 8 (5-19); BLOOD UREA NITROGEN 41 mg/dL (7-20); CALCIUM 8.8 mg/dL (8.4-10.2); CARBON DIOXIDE 24 mmol/L (22-30); CHLORIDE 105 mmol/L (98-107); CREATINE KINASE 1427 U/L (55-170); GLUCOSE 141 mg/dL (75-110); POTASSIUM 4.9 mmol/L (3.6-5.0)
[2020-04-14] MEDS: HEPARIN SOD (PORCINE) 5,000 UNIT/ML 1 ML VIAL SUBCUT SCH ×2 (09:06→21:16)
[2020-04-14] MEDS: FAMOTIDINE 20 MG TABLET PO SCH ×2 (09:06→21:17)
[2020-04-14] MEDS: HYDROMORPHONE HCL INJ/PF 2 MG/ML AMPULE IV PRN ×2 (09:10→21:28)
[2020-04-14] MEDS ORDERED: NICOTINE 21 MG/24 HR PATCH.TD24 TD SCH (10:00)
--- NOTE | 2020-04-14 14:56 | PDOC PROGRESS REPORT ---
Subjective Date:: 04/14/20 Subjective:: TORY GARCIA is a 55 year old male with a history of type 2 diabetes, hypertensi on, COPD and chronic back pain who presents to the ED reporting worsening of neck and back pain. On further questioning patient reports that he has body aches all over with associated generalized weakness. He reports that he he fell down 3 times in the past few days due to generalized weakness and pain but he denies any dizziness, lightheadedness, passing out/losing consciousness or hitting his head. He states that he had multiple episodes of nonbloody and nonbilious vomiting of ingested matter 3 days back which subsided spontaneously but he states that he still feels nauseous. He states that he has been taking oxycodone and Tylenol for his back and neck pain but denies taking any other nonsteroidal anti-inflammatory drugs. He reported that he has chronic cough from COPD but has not noticed any significant change in the intensity of his cough or shortness of breath. He denies fever, chills, diarrhea, abdominal pain, dysuria, frequency or urgency. On routine labs his BUN and/creatinine was found to be markedly elevated at 52/5.5 from a creatinine of 1.47 10 days back. D2 hospital stay. The patient was seen and examined at bedside. Stated that generalized weakness has improved. He is making good urine, no hematuria. Crea has improved to 2.2. PT/OT consulted due to recurrent falls. Reason For Visit: RHABDO AND DENISE Physical Exam Vital Signs: Temp Pulse Resp BP Pulse Ox 98.2 F 83 14 134/72 H 96 04/14/20 11:25 04/14/20 12:33 04/14/20 12:33 04/14/20 11:25 04/14/20 12:33 Intake & Output 04/13/20 04/14/20 04/15/20 06:59 06:59 06:59 Intake Total 1000 1260 Balance 1000 1260 Weight 93.5 kg General appearance: PRESENT: no acute distress, cooperative Head exam: PRESENT: atraumatic, normocephalic Eye exam: PRESENT: EOMI, PERRLA Mouth exam: PRESENT: moist Neck exam: PRESENT: full ROM Respiratory exam: PRESENT: clear to auscultation paolo, symmetrical, unlabored Cardiovascular exam: PRESENT: RRR, +S1, +S2 GI/Abdominal exam: PRESENT: normal bowel sounds, soft. ABSENT: rebound, tenderness Extremities exam: PRESENT: full ROM Musculoskeletal exam: PRESENT: full ROM Neurological exam: PRESENT: alert, awake, oriented to person, oriented to place, oriented to time, oriented to situation Psychiatric exam: PRESENT: normal mood Skin exam: PRESENT: normal color Results Laboratory Results: 04/14/20 04:09 04/14/20 04:09 04/13/20 04/13/20 04/13/20 14:48 14:48 17:00 WBC 10.1 RBC 3.67 L Hgb 11.7 L Hct 35.4 L MCV 96 MCH 32.0 MCHC 33.2 RDW 14.6 H Plt Count 181 Seg Neutrophils % 81.2 H Sodium 139.1 Potassium 4.8 Chloride 101 Carbon Dioxide 24 Anion Gap 14 BUN 52 H Creatinine 5.50 H Est GFR ( Amer) 13 L Glucose 211 H Calcium 8.8 Total Bilirubin 0.8 AST 43 Alkaline Phosphatase 45 Total Protein 8.0 Albumin 4.6 Urine Color YELLOW Urine Appearance SLIGHTLY-CLOUDY Urine pH 5.0 Ur Specific [place] 1.021 Urine Protein 30 H Urine Glucose (UA) NEGATIVE Urine Ketones NEGATIVE Urine Blood MODERATE H Urine Nitrite NEGATIVE Ur Leukocyte Esterase NEGATIVE Urine WBC (Auto) 1 Urine RBC (Auto) 1 04/14/20 04/14/20 04:09 04:09 WBC 6.3 RBC 3.20 L Hgb 10.3 L Hct 30.7 L MCV 96 MCH 32.2 MCHC 33.5 RDW 14.1 H Plt Count 140 L Seg Neutrophils % 67.9 Sodium 136.8 L Potassium 4.9 Chloride 105 Carbon Dioxide 24 Anion Gap 8 BUN 41 H Creatinine 2.24 H Est GFR ( Amer) 37 L Glucose 141 H Calcium 8.8 Total Bilirubin AST Alkaline Phosphatase Total Protein Albumin Urine Color Urine Appearance Urine pH Ur Specific [place] Urine Protein Urine Glucose (UA) Urine Ketones Urine Blood Urine Nitrite Ur Leukocyte Esterase Urine WBC (Auto) Urine RBC (Auto) 04/13/20 04/14/20 14:48 04:09 Creatine Kinase 1325 H 1427 H Impressions: Cervical Spine CT 04/13/20 14:13 IMPRESSION: 1. No CT evidence of acute fracture or subluxation of the cervical spine. Lumbar Spine X-Ray 04/13/20 14:13 IMPRESSION: SPONDYLOSIS WITHOUT BONE LESION OR FRACTURE. Similar appearance to 2018. Assessment and Plan - Diagnosis (1) Acute kidney injury Is this a current diagnosis for this admission?: Yes Plan: Patient presents with generalized body aches and weakness BUN/creatinine is elevated at 52/5.5 from a baseline creatinine of 1.47 on 04/03 Likely cause could be prerenal from GI loss, crystal induced from rhabdo versus pain medication Fena 0.2% consistent with pre renal CK level is elevated at 1325 Patient received 1 L IV fluid at the ED Provide additional bolus and then continue normal saline at 150 mL/h Closely monitor kidney function and electrolytes, urine output Avoid nephrotoxic's and renally dose medications (2) Chronic neck and back pain Is this a current diagnosis for this admission?: Yes Plan: Patient presents with worsening of neck pain Lumbar spine x-ray showed spondylosis without an acute change Cervical CT was also done which showed no evidence of acute fracture or subluxation Placed him on Dilaudid 0.5 mg every 4 hourly as needed for pain PT/OT consulted (3) Rhabdomyolysis Is this a current diagnosis for this admission?: Yes Plan: Presents with generalized aches Patient has been having falls due to weakness CK level is elevated at 1325 Continue aggressive IV hydration as stated above Monitor CK level (4) COPD (chronic obstructive pulmonary disease) Qualifiers: COPD type: unspecified COPD Qualified Code(s): J44.9 - Chronic obstructive pulmonary disease, unspecified Is this a current diagnosis for this admission?: Yes (5) Type 2 diabetes mellitus 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
[2020-04-15 01:57] VITALS: BP 148/75
[2020-04-15] MEDS: OXYCODONE-ACETAMINOPHEN 5-325 MG TABLET PO PRN (02:49)
--- NOTE | 2020-04-15 06:27 | Left Against Medical Advice ---
Against Medical Advice Admission Date/Time: 04/14/20 09:57 Primary Care Provider: ELY RODRIGUEZ PA-C Date of Patient Emigration: 04/15/20 - Diagnosis: (1) Acute kidney injury Is this a current diagnosis for this admission?: Yes (2) Rhabdomyolysis Is this a current diagnosis for this admission?: Yes (3) Type 2 diabetes mellitus Is this a current diagnosis for this admission?: Yes (4) COPD (chronic obstructive pulmonary disease) Is this a current diagnosis for this admission?: Yes (5) Hypertension Is this a current diagnosis for this admission?: Yes (6) Chronic neck and back pain Is this a current diagnosis for this admission?: Yes - Summary: Summary: Please see Admission and Progress Notes as well. TORY GARCIA is a 55 M, who LEFT AGAINST MEDICAL ADVICE. The Patient was admitted on 04/14/20 09:57.
== END 2020-04-15 04:45 | disposition left against medical advice (07) | DRG 683 ==
LOC: ER 13:24 → EH 21:14 → 4N 23:36 → OBSVTOIN 04-14 09:57
PROVIDERS: ADMIT Student in an Organized Health Care Education/Training Program; ATTEND Internal Medicine
DX: N17.9 Acute kidney failure, unspecified (principal); M62.82 Rhabdomyolysis; E11.9 Type 2 diabetes mellitus without complications; I10 Essential (primary) hypertension; J44.9 Chronic obstructive pulmonary disease, unspecified; M54.2 Cervicalgia; Z91.81 History of falling; M19.90 Unspecified osteoarthritis, unspecified site; Z90.49 Acquired absence of other specified parts of digestive tract; F17.200 Nicotine dependence, unspecified, uncomplicated; Z88.8 Allergy status to other drugs, medicaments and biological substances; M54.9 Dorsalgia, unspecified; Z79.84 Long term (current) use of oral hypoglycemic drugs
CPT/HCPCS: 36415; 72110; 72125; 80048; 80053; 81001; 82550; 82570; 82962; 83036; 84300; 84443; 85025; 94640; 96361; 96374; 96375; 99285; J1170; J1644; J1815; J2270; J2405; J7030